=== PATIENT | male | born 1940 | race Caucasian/White ===

== ENCOUNTER → 2016-07-27 | Outpatient (CLI) | payer OTHER, MEDICARE ==
[~2016-07-27] MED LIST: ASPI81TA28 PO; CHOL100027 PO; COENCAP8 PO; DILT180C50 PO; LOSA100T2 PO; LVT/20 PO; MULT-188 PO; MULT60CA PO; OMEG-21 PO; OXYC-57 PO; POTA-335 PO; SIMV20TA2 PO; TRAM-10 PO
[2016-07-27 09:32] LABS: BASO % 0.4 %; BASO ABS # 0.03 K/uL (0-0.2); COMPLETE YES; EOS % 5.1 %; HEMATOCRIT 43.5 % (42-52); IG% 0.1 %; LYMPH % 24.4 %; LYMPH ABS # 1.95 K/uL (1.2-3.4); MEAN CELL VOLUME 91.4 fL (80-100); MEAN CORPUSCULAR HEMOGLOBIN 31.3 pg (25-34); MEAN CORPUSCULAR HGB CONC 34.3 g/dl (32-36); MEAN PLATELET VOLUME 12.9 fL (7.4-10.4); MONO % 7.5 %; NEUT % 62.5 %; PLATELET COUNT 176 K/uL (130-400); RED BLOOD COUNT 4.76 M/uL (4.7-6.1); WHITE BLOOD COUNT 7.99 K/uL (4.8-10.8)
[2016-07-27 09:36] LABS: URINE APPEARANCE CLEAR (CLEAR); URINE BILIRUBIN NEG (NEG); URINE COLOR YELLOW; URINE EPITHELIAL CELL AUTO 0-5 /lpf (0-5); URINE NITRITE NEG (NEG); URINE SPECIFIC GRAVITY 1.014 (1.000-1.030); UROBILINOGEN NEG (NEG); ZZUR CULT IF INDIC CLEAN CATCH NO
[2016-07-27 09:42] LABS: MANUAL MICROSCOPIC REQUIRED? NO; REVIEW REQ? NO
[2016-07-27 09:55] LABS: ESTIMATED AVERAGE GLUCOSE 128 mg/dl; HA1C FLAG Normal (Normal)
[2016-07-27 10:00] LABS: URINE PROTIEN/CREAT RATIO 0.1 (0-0.2); URINE TOTAL PROTEIN 10.7 mg/dl (0-11.9)
[2016-07-27 10:05] LABS: BLOOD UREA NITROGEN 22 mg/dl (7-18); BUN/CREATININE RATIO 17.1 (10-20); CARBON DIOXIDE 33 mmol/L (21-32); CHLORIDE 102 mmol/L (98-107); CHOLESTEROL 186 mg/dl (0-200); GLUCOSE 114 mg/dl (70-99); MAGNESIUM 2.2 mg/dl (1.8-2.4); POTASSIUM 3.8 mmol/L (3.5-5.1); SODIUM 140 mmol/L (136-145)
[2016-07-27 10:13] LABS: CHOLESTEROL/HDL RATIO 2.9; HDL CHOLESTEROL 64 mg/dl; LDL CHOLESTEROL CALCULATED 102 mg/dl; PHOSPHORUS 2.8 mg/dl (2.5-4.9); TRIGLYCERIDES 100 mg/dl (0-150); VERY LOW DENSITY LIPOPROT CALC 20 mg/dl
== END | disposition home or self-care (01) ==
LOC: C.LAB1850 07:57
PROVIDERS: ATTEND Internal Medicine Pulmonary Disease
DX: E78.5 Hyperlipidemia, unspecified (principal); I12.9 Hypertensive chronic kidney disease with stage 1 through stage 4 chronic kidney disease, or unspecified chronic kidney disease; G56.00 Carpal tunnel syndrome, unspecified upper limb; R73.9 Hyperglycemia, unspecified; E03.9 Hypothyroidism, unspecified; N18.3 Chronic kidney disease, stage 3 (moderate)

== ENCOUNTER → 2016-08-07 | Outpatient (CLI) | payer OTHER, MEDICARE ==
--- NOTE | 2016-08-07 14:38 | DIAGNOSTIC IMAGING REPORT ---
CAROTID ARTERY ULTRASOUND CLINICAL HISTORY: Follow up carotid stenosis status post left carotid endarterectomy. COMPARISON STUDY: Carotid ultrasound August 02, 2015. TECHNIQUE: Real-time, grayscale, and color Doppler sonography of the carotid and vertebral arteries was performed. Images were viewed in the transverse and longitudinal planes. FINDINGS: There is extensive atherosclerotic plaque present the proximal right internal carotid artery. Velocity measurements are listed below. COMMON CAROTID PEAK SYSTOLIC VELOCITY (CM/S): RIGHT 56 LEFT 76 ICA PEAK SYSTOLIC VELOCITY (CM/S): RIGHT 207 LEFT 76 The systolic ratio between the right internal to common carotid artery is elevated at 3.7. Antegrade flow is seen in the vertebral arteries. The external carotid arteries are patent. Blood pressure in the right arm measured 143/71. Blood pressure in the left arm measured 142/69. IMPRESSION: 1. No significant change in findings suggestive of 50-69% stenosis of the proximal right internal carotid artery since ultrasound of August 02, 2015. 2. No evidence of a hemodynamically significant stenosis on the left. Electronically signed by: Delta Suarez M.D. 08/07/2016 2:37 PM Dictated Date/Time: 08/07/2016 2:34 PM
--- NOTE | 2016-08-13 14:23 | CODING QUERY MEDICAL NECESSITY ---
SUPPORTING DIAGNOSIS NEEDED Dr. Power, A supporting diagnosis is required for the test/procedure performed on this patient in order for us to be reimbursed by the patient's insurance. Please provide a supporting diagnosis for the following test/procedure listed below next to the test name along with your signature. *If there is no additional diagnosis for this patient that would support the following test/procedure please document that below next to the test/procedure. Test(s)/Procedure(s) that require a supporting diagnosis: * ([id number]) (CAROTID DOP) DUPLEX NECK ARTER DIAGNOSIS: DATE OF SERVICE: 08/07/16 Provider Signature: Date: Thank you Orlin Devries Health Information Management Once completed, please kindly fax back to [phone] For questions please call [phone]
== END | disposition home or self-care (01) ==
LOC: C.ULTR 13:37
PROVIDERS: ATTEND Surgery
DX: I65.29 Occlusion and stenosis of unspecified carotid artery (principal)

== ENCOUNTER → 2016-08-21 | Outpatient (CLI) | payer OTHER, MEDICARE ==
--- NOTE | 2016-08-21 10:49 | DIAGNOSTIC IMAGING REPORT ---
CERVICAL SPINE 6 VIEWS HISTORY: Neuropathy R20.0 [id number] COMPARISON: None. FINDINGS: The cervical spine is visualized from C1 through the superior endplate of T1. There is no fracture. No subluxation. Moderate degenerative disc change from C5 through T1. Mild reversal of normal cervical curvature presumably on the basis of muscular spasm. Moderate osteophytic narrowing of the bulk of the neuroforamina bilaterally. Calcification of carotid vasculature. IMPRESSION: Moderate degenerative change throughout the entire cervical region. Moderate osteophytic narrowing of the bulk of the neuroforamina bilaterally. Muscle spasm. Electronically signed by: Elpidio Santana M.D. 08/21/2016 10:48 AM Dictated Date/Time: 08/21/2016 10:46 AM
== END | disposition home or self-care (01) ==
LOC: C.RAD1850 10:15
PROVIDERS: ATTEND Internal Medicine Pulmonary Disease
DX: R20.0 Anesthesia of skin (principal)

== ENCOUNTER → 2016-10-12 | Outpatient (CLI) | payer OTHER, MEDICARE ==
--- NOTE | 2016-10-12 11:05 | DIAGNOSTIC IMAGING REPORT ---
LEFT INJ MAJOR JN SHLDR,HIP,KNEE CLINICAL HISTORY: HIPhip pain COMPARISON STUDY: None FLUOROSCOPY TIME: 24 seconds. FINDINGS: Following description of procedure and informed consent, fluoroscopic assistance was provided to place a 22-gauge needle within the left hip joint space. Test injection of contrast confirmed its intra-articular location. This is followed by steroid injection per order. There are no complications. IMPRESSION: Successful therapeutic left hip injection The above report was generated using voice recognition software. It may contain grammatical, syntax or spelling errors. Electronically signed by: Elpidio Santana M.D. 10/12/2016 11:03 AM Dictated Date/Time: 10/12/2016 11:02 AM
== END | disposition home or self-care (01) ==
LOC: C.RADBC 09:48
PROVIDERS: ATTEND Orthopaedic Surgery
DX: M16.12 Unilateral primary osteoarthritis, left hip (principal)

== ENCOUNTER → 2016-11-27 | Day surgery (SDC) | payer OTHER, MEDICARE ==
[2016-11-09 07:48] VITALS: Ht 167.6 cm; Wt 77.3 kg
[~2016-11-27] VITALS: Ht 167.6 cm; Wt 77.3 kg
[~2016-11-27] MED LIST changes: +ATROPINE SULFATE 0.1 MG/ML 5ML SYR IV PRN; +BUPIVACAINE 0.5 % 5 MG/1 ML MPF 30ML VIAL ONE; +CEFAZOLIN 1000MG/55 ML D5W IV SCH; -CHOL100027 PO; +EpHEDrine SULFATE INJ 50 MG/ML AMP IV PRN; +FENTANYL CITRATE INJ 50 MCG/1 ML 2 ML VIAL ONE; +LACTATED RINGER'S 1000ML 1,000 ML IV SCH; +LIDOCAINE HCL 1% 20 ML VIAL ONE; +LIDOCAINE HCL 2% 2 ML VIAL (20MG/ML) ONE; -LVT/20 PO; -MULT-188 PO; +ONDANSETRON INJ 2 MG/ML 2 ML VIAL IV PRN; -OXYC-57 PO; +OXYCODONE/ACETAMINOPHEN 5-325 TAB PO PRN; -POTA-335 PO; +PROPOFOL IV EMULSION 10 MG/ML 20 ML VIAL IV ONE; +SODIUM CHLORIDE 0.9% 1000ML 1,000 ML IV SCH
--- NOTE | 2016-11-27 06:50 | History & Physical Bridge - SC ---
H&P Re-Evaluation Bridge Note: I have examined the patient, reviewed the History & Physical and in the interval since the performance of the History & Physical I have noted the following changes of clinical significance: No changes noted
[2016-11-27 07:41] VITALS: TEMP 36.9
--- NOTE | 2016-11-27 07:44 | Discharge Instructions-SurgCtr ---
Discharge Instructions Date of Service Nov 27, 2016. Visit Reason for Visit: Right Carpal Tunnel Syndrome Discharge Discharge Diagnosis / Problem: SAME ABOVE Discharge Goals Goal(s): Decrease discomfort, Improve function Activity Recommendations Activity Limitations: as noted below Lifting Limitations: until after follow-up appointment Exercise/Sports Limitations: until after follow-up appointment Shower/Bathe: keep incision dry Anesthesia . Post Anesthesia Instructions: If you have had General Anesthesia or IV Sedation: * Do not drive today. * Resume driving when surgeon permits. * Do not make important decisions or sign legal documents today. * Call surgeon for: 1. Temperature elevations greater than 101 degrees F. 2. Uncontrollable pain. 3. Excessive bleeding. 4. Persistent nausea and vomiting. 5. Medication intolerance (nausea, vomiting or rash). * For nausea and vomiting use only clear liquids such as: tea, soda, bouillon until nausea subsides, then gradually increase diet as tolerated. * If you have any concerns or questions, call your surgeon's office. If physician is unavailable and it is an emergency, call 911 or go to the nearest emergency room. . Instructions / Follow-Up Instructions / Follow-Up MEDICATIONS: * Resume previous medications unless instructed otherwise by your surgeon. * Always take pain medication on a full stomach or with food to avoid upset stomach. * Do not drink alcohol or drive while taking narcotics. * Ibuprofen or Tylenol may be taken if narcotic not needed. SPECIAL CARE INSTRUCTIONS: __ None _X_ Keep extremity elevated and iced x 48 hours; apply ice 20-30 minutes 8-10 times/day. May remove at night. __ Sling __24 hrs/day __ Remove at night __ Shoulder Immobilizer __ 24 hrs/day __ Remove at night _X_ Dressing _X_ Maintain until seen in office, may shower with plastic over site __ Remove dressings in 24-48 hours and then may shower __ Cover incisions with band-aids after showering __ Do not remove steri-strips Call physician if chills or temperature rises above 102 degrees or pain unrelieved by prescribed pain medications at . . Diet Recommendations Home Diet: resume previous diet Procedures Procedures Performed: Right Carpal Tunnel Release Pending Studies Studies pending at discharge: no Medical Emergencies . Who to Call and When: Medical Emergencies: If at any time you feel your situation is an emergency, please call 911 immediately. . Non-Emergent Contact Non-Emergency issues call your: Primary Care Provider . . "Provider Documentation" section prepared by Ankit Mann. .
--- NOTE | 2016-11-27 07:52 | Anesthesia Progress Nt - [facility] ---
Anesthesia Post Op Note Date & Time Nov 27, 2016 at 07:52 Vital Signs Pain Intensity: 0 Vital Signs Past 12 Hours Date Time Temp Pulse Resp B/P (MAP) Pulse Ox O2 Delivery O2 Flow Rate FiO2 11/27/16 07:41 36.9 57 16 125/70 (88) 95 Room Air 11/27/16 06:26 36.6 59 16 128/77 (94) 98 Room Air Notes Mental Status: alert / awake / arousable, participated in evaluation Pt Amnestic to Procedure: Yes Nausea / Vomiting: adequately controlled Pain: adequately controlled Airway Patency, RR, SpO2: stable & adequate BP & HR: stable & adequate Hydration State: stable & adequate Anesthetic Complications: no major complications apparent
[2016-11-27 08:08] VITALS: BP 129/76; PULSE 50; O2SAT 100
--- NOTE | 2016-11-27 08:36 | [facility] Post Operative Brief Note ---
Immediate Operative Summary Operative Date Nov 27, 2016. Pre-Operative Diagnosis Right Carpal Tunnel Syndrome Post-Operative Diagnosis Same Procedure(s) Performed Right Carpal Tunnel Release Surgeon Dr. Huerta Speech Assistant Surgeon(s) Michell Mann PA-C Estimated Blood Loss None Findings ABOVE Specimens None Anesthesia LOCAL IV SEDATION Complication(s) None Disposition
--- NOTE | 2016-11-27 11:44 | OPERATIVE REPORT ---
DATE OF OPERATION: 11/27/2016 PREOPERATIVE DIAGNOSIS: Right carpal tunnel syndrome. POSTOPERATIVE DIAGNOSIS: Same. PROCEDURE: Decompression of median nerve and release of transverse carpal ligament, right wrist. SURGEON: Dr. Jeronimo Huerta. NURSE EXECUTIVE: Ankit Mann PA-C. ANESTHESIOLOGIST: Samir Hughes MD ANESTHESIA: Local with IV sedation. DRAINS: None. COMPLICATIONS: None. CONDITION: The patient tolerated the procedure well and returned to recovery in apparent satisfactory condition. INDICATIONS FOR SURGERY: Jd is a 76-year-old male who has had numbness and tingling in his right hand consistent with carpal tunnel syndrome as well as atrophy of the thenar muscles. He had it for about 10 years now. We went over treatment options and he elected to go ahead and proceed with surgery. The procedure, expected outcomes and side effects were all explained in detail. No guarantees of the operation and he understands his overall recovery time because of the chronicity of his carpal tunnel. DESCRIPTION OF PROCEDURE: The patient was taken to the OR at which time, he was placed supine on the operating table. The right hand was prepped and draped in the usual sterile fashion for this surgery. The anticipated incision site was infiltrated with 1% Xylocaine. A forearm tourniquet was placed on the arm and tourniquet was placed up to 250 mmHg. Incision was made vertically over the transverse carpal tunnel ligament. Dissection was done down until the palmar fascia was identified and divided with a 15-blade. The transverse carpal ligament was identified and also divided with the 15-blade and upbiting scissors. A small portion of the forearm fascia was divided also. Electrocautery was used to control any areas of bleeding. The nerve was freed up from any scar tissue and adequately decompressed. The wound then was copiously irrigated. It was closed then with interrupted 4-0 nylon sutures. Marcaine without Epinephrine was placed in the skin edges. It was closed in a layered fashion. We placed a sterile dressing of Xeroform, 4 x 4, volar splint, and an Raymond bandage. DISPOSITION: The patient was returned back to the recovery room in apparent satisfactory condition. I attest to the content of the Intraoperative Record and any orders documented therein. Any exception s are noted below.
== END | disposition home or self-care (01) ==
LOC: X.SURG 06:09
PROVIDERS: ATTEND Orthopaedic Surgery
DX: G56.01 Carpal tunnel syndrome, right upper limb (principal); I10 Essential (primary) hypertension; I51.9 Heart disease, unspecified; Z79.82 Long term (current) use of aspirin

== ENCOUNTER → 2017-06-24 | Outpatient (CLI) | payer OTHER, MEDICARE ==
[~2017-06-24] MED LIST changes: -ATROPINE SULFATE 0.1 MG/ML 5ML SYR IV PRN; -BUPIVACAINE 0.5 % 5 MG/1 ML MPF 30ML VIAL ONE; -CEFAZOLIN 1000MG/55 ML D5W IV SCH; -EpHEDrine SULFATE INJ 50 MG/ML AMP IV PRN; -FENTANYL CITRATE INJ 50 MCG/1 ML 2 ML VIAL ONE; -LACTATED RINGER'S 1000ML 1,000 ML IV SCH; -LIDOCAINE HCL 1% 20 ML VIAL ONE; -LIDOCAINE HCL 2% 2 ML VIAL (20MG/ML) ONE; -MULT60CA PO; -ONDANSETRON INJ 2 MG/ML 2 ML VIAL IV PRN; -OXYCODONE/ACETAMINOPHEN 5-325 TAB PO PRN; -PROPOFOL IV EMULSION 10 MG/ML 20 ML VIAL IV ONE; -SODIUM CHLORIDE 0.9% 1000ML 1,000 ML IV SCH; -TRAM-10 PO
[2017-06-24 09:58] LABS: HEMATOCRIT 45.3 % (42-52); HEMOGLOBIN 15.2 g/dL (14.0-18.0); MEAN CELL VOLUME 88.5 fL (80-100); MEAN CORPUSCULAR HEMOGLOBIN 29.7 pg (25-34); MEAN CORPUSCULAR HGB CONC 33.6 g/dl (32-36); MEAN PLATELET VOLUME 12.2 fL (7.4-10.4); PLATELET COUNT 125 K/uL (130-400); RED CELL DISTRIBUTION WIDTH CV 14.3 % (11.5-14.5); RED CELL DISTRIBUTION WIDTH SD 46.6 fL (36.4-46.3)
[2017-06-24 09:59] LABS: BASO % 0.2 %; BASO ABS # 0.02 K/uL (0-0.2); EOS % 1.6 %; EOS ABS # 0.14 K/uL (0-0.5); IG# 0.07 K/uL (0.00-0.02); LYMPH % 32.6 %; LYMPH ABS # 2.93 K/uL (1.2-3.4); MONO ABS # 0.72 K/uL (0.11-0.59); NEUT % 56.8 %; NEUT ABS # 5.12 K/uL (1.4-6.5)
[2017-06-24 10:06] LABS: ALBUMIN 2.9 gm/dl (3.4-5.0); ALT/SGPT 97 U/L (12-78); AST/SGOT 33 U/L (15-37); BLOOD UREA NITROGEN 31 mg/dl (7-18); CARBON DIOXIDE 30 mmol/L (21-32); CHOLESTEROL 203 mg/dl (0-200); CREATININE 1.25 mg/dl (0.60-1.40); GLUCOSE 105 mg/dl (70-99); POTASSIUM 3.5 mmol/L (3.5-5.1); SODIUM 137 mmol/L (136-145)
[2017-06-24 10:07] LABS: CREATININE RANDOM URINE 54.5 mg/dl; HEMOGLOBIN A1C 6.5 % (4.5-5.6)
[2017-06-24 10:16] LABS: ALKALINE PHOSPHATASE 109 U/L (45-117); LDL CHOLESTEROL CALCULATED 128 mg/dl; TOTAL PROTEIN 6.9 gm/dl (6.4-8.2)
== END | disposition home or self-care (01) ==
LOC: C.LAB1850 07:13
PROVIDERS: ATTEND Internal Medicine Pulmonary Disease
DX: E11.9 Type 2 diabetes mellitus without complications (principal); N52.9 Male erectile dysfunction, unspecified

== ENCOUNTER → 2017-07-04 | Outpatient (CLI) | payer OTHER, MEDICARE ==
--- NOTE | 2017-07-04 16:30 | DIAGNOSTIC IMAGING REPORT ---
MRI OF THE CERVICAL SPINE WITHOUT CONTRAST CLINICAL HISTORY: Neck and bilateral shoulder pain, more severe on the left. No known trauma. COMPARISON: Cervical spine radiographs August 21, 2016. TECHNIQUE: Utilizing a 1.5 Ema magnet and dedicated coil, multiplanar, multiecho imaging of the cervical spine was performed without IV contrast. FINDINGS: There is reversal of the normal cervical lordosis. Vertebral body heights are maintained. There is no marrow replacement. 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 No intracanalicular mass or fluid collection is present. Cervical cord signal and caliber are normal. Paravertebral soft tissues are unremarkable. There is mild disc space narrowing at C5-C6 and C6-C7. C2-C3: The central canal is patent. There is mild to moderate bilateral neural foraminal stenosis. C3-C4: Posterior disc osteophyte complex results in mild narrowing of the central canal which indents the ventral thecal sac. There is severe bilateral neural foraminal stenosis due to facet arthrosis and uncovertebral hypertrophy. C4-C5: Posterior disc osteophyte complex results in mild to moderate narrowing of the central canal. This indents the ventral aspect of the thecal sac. There is severe bilateral neural foraminal stenosis. C5-C6: Posterior disc osteophyte complex results in moderate narrowing of the central canal. Note is made of moderate to severe bilateral neural foraminal stenosis C6-C7: Posterior disc osteophyte complex results in mild narrowing of the central canal. There is severe bilateral neural foraminal stenosis. C7-T1: The central canal and neural foramen are patent. IMPRESSION: 1. Mild to moderate multilevel central canal stenosis, as detailed above. Normal cervical cord signal and caliber. 2. Severe multilevel neural foraminal stenosis due to facet arthrosis and uncovertebral hypertrophy, as described above. 3. No cervical spine fracture. Electronically signed by: Delta Suarez M.D. 07/04/2017 4:29 PM Dictated Date/Time: 07/04/2017 4:21 PM
== END | disposition home or self-care (01) ==
LOC: C.MRIBC 14:52
PROVIDERS: ATTEND Orthopaedic Surgery
DX: M54.2 Cervicalgia (principal); M25.519 Pain in unspecified shoulder; M48.02 Spinal stenosis, cervical region; M47.892 Other spondylosis, cervical region

== ENCOUNTER → 2017-10-04 | Outpatient (CLI) | payer OTHER, MEDICARE ==
[~2017-10-04] MED LIST changes: +AMOX500C3 PO; +CHOL100010 PO; +CYCL5TAB PO; +HYDR-5688 PO; +LVT/20 PO; +MULT-190 PO; +NTRSL3 UT
--- NOTE | 2017-10-04 12:45 | DIAGNOSTIC IMAGING REPORT ---
BILATERAL CAROTID DOPPLER STUDY HISTORY: I65.29 Carotid artery stenosisLast Caroid 08/[id number]/[id number] COMPARISON: Carotid Doppler 08/07/2016. TECHNIQUE: Real-time, grayscale, and color Doppler sonography of the carotid arteries was performed. Imaging reviewed in the transverse and longitudinal planes. All measurements were calculated based on NASCET criteria. FINDINGS: Antegrade flow is seen in the bilateral vertebral arteries. The brachial pressures are hemodynamically similar. Extensive calcified plaque within the right carotid bifurcation and proximal right internal carotid artery. This is not significantly changed. The peak systolic velocity within the right ICA is 203 cm/s proximally. The right systolic ratio is 3.3. This is similar to the prior study. The peak systolic velocity within the left ICA is 89 cm/s. The left systolic ratio is 1.1. IMPRESSION: 1. Approximately 60-69 % stenosis within the proximal right internal carotid artery. This is not significantly changed. 2. No hemodynamically significant stenosis within the left carotid arteries. Electronically signed by: Nhan Turcios M.D. 10/04/2017 12:43 PM Dictated Date/Time: 10/04/2017 12:40 PM
== END | disposition home or self-care (01) ==
LOC: C.ULTR 11:33
PROVIDERS: ATTEND Surgery
DX: I65.21 Occlusion and stenosis of right carotid artery (principal)